=== PATIENT | female | born 1950 | race Caucasian/White ===

== ENCOUNTER 2025-06-13 20:43 | Emergency (ER) | payer MEDICARE ==
[~2025-06-13] VITALS: Ht 162.6 cm; Wt 81.6 kg
[2025-06-13] MEDS ORDERED: MORPHINE SULFATE INJ 4 MG/ML DISP.SYRIN ONE (23:08)
[2025-06-13] MEDS: MORPHINE SULFATE INJ 2 MG/ML DISP.SYRIN IM ONE ×2 (23:12→23:48)
[2025-06-13] MEDS ORDERED: HYDR-3972 PO (23:38)
[2025-06-14 06:03] VITALS: BP 134/69; TEMP 98.7; O2SAT 98
== END 2025-06-14 06:04 | disposition home or self-care (01) ==
LOC: ER 21:31
DX: S42.351A Displaced comminuted fracture of shaft of humerus, right arm, initial encounter for closed fracture (principal); S83.92XA Sprain of unspecified site of left knee, initial encounter; S00.83XA Contusion of other part of head, initial encounter; Z88.0 Allergy status to penicillin; W01.0XXA Fall on same level from slipping, tripping and stumbling without subsequent striking against object, initial encounter; Y93.89 Activity, other specified; Y92.89 Other specified places as the place of occurrence of the external cause; Y99.8 Other external cause status
CPT/HCPCS: 99284; 96372; 73564; 73020; J2270